=== PATIENT | male | born 1980 | race Caucasian/White ===

== ENCOUNTER → 2017-08-15 10:49 | Outpatient (CLI) | payer OTHER, SELFPAY ==
[2017-08-15 12:52] LABS: Alanine Aminotransferase 62 IU/L (21-72); Albumin 4.4 g/dL (3.5-5.0); Albumin Globulin Ratio 1.7 (1.0-2.8); Alkaline Phosphatase 70 U/L (38-126); Aspartate Aminotransferase 36 IU/L (17-59); BUN Creatinine Ratio 18.6 (6-22); Bilirubin Total 0.6 mg/dL (0.2-1.3); Calcium 9.8 mg/dL (8.4-10.2); Estimated Glomerular Filt Rate > 60.0 mL/min (>60); Globulin 2.6 g/dL (1.7-4.1); Glucose 88 mg/dL (70-100); HEMOLYSIS 18 (0-50); Potassium 4.3 mmol/L (3.4-5.1); Sodium 141 mmol/L (137-145)
[2017-08-15 13:05] LABS: Vitamin D 25 Hydroxy (D3) 40.6 ng/mL (30.0-100.0)
[2017-08-15 13:22] LABS: Thyroid Stimulating Hormone 0.65 uIU/mL (0.47-4.68)
[2017-08-17 07:39] LABS: Add Manual Diff / Slide Review NO; Basophils Percent Auto 0.6 % (0-2); Eosinophils Percent Auto 2.5 % (2-4); Hematocrit 35.8 % (41-53); Hemoglobin 12.3 g/dL (13.5-17.5); Lymphocytes Percent Auto 34.2 % (25-40); Mean Corpuscular HGB Conc 34.4 % (30-36); Mean Corpuscular Hemoglobin 31.2 PG (26-34); Mean Corpuscular Volume 90.6 fL (80-100); Monocytes Percent Auto 6.6 % (3-14); Neutrophils Absolute Auto 1900 /uL (3000-5900); Neutrophils Percent Auto 56.1 % (50-75); Platelet Count 137 X10^3/uL (150-400); Red Blood Cell Count 3.95 X10^6/uL (4.5-5.9); Red Cell Distribution Width 13.5 % (11.6-14.8); White Blood Cell Count 3.3 X10^3/uL (4.5-11.0)
[2017-08-19 18:56] LABS: Zinc 70 mcg/dL (60-130)
== END ==
PROVIDERS: PCP Family Medicine; Visit Provider Specialist
DX: E83.81 Hungry bone syndrome (principal); E55.9 Vitamin D deficiency, unspecified; F41.1 Generalized anxiety disorder; G47.9 Sleep disorder, unspecified
CPT/HCPCS: 36415; 80053; 82306; 82390; 82525; 84443; 84630; 85025

== ENCOUNTER → 2018-06-03 14:20 | Outpatient (CLI) | payer OTHER, SELFPAY ==
--- NOTE | 2018-06-03 | DI.US.S_ITS ---
PROCEDURE: US ABDOMEN COMPLETE INDICATIONS: ABDOMINAL PAIN TECHNIQUE: Real-time scanning was performed of the abdominal and retroperitoneal organs, with image documentation. COMPARISON: [facility], CT, ABDOMEN/PELVIS WITH CONTRAST, 12/19/2014, 8:49. FINDINGS: Liver: Liver is normal in size and demonstrates mild, diffusely increased echotexture. Gallbladder: Gallbladder appears normal. No gallstones. No gallbladder wall thickening, pericholecystic fluid or sonographic Grider's sign. Biliary ducts: Intrahepatic bile ducts are non-dilated. Extrahepatic bile duct caliber measures 3.1 mm. Normal is 6-7 mm or less in diameter, or 10 mm or less post-cholecystectomy. Pancreas: Visualized portions of the pancreas are sonographically normal. Spleen: Spleen is normal in size and homogeneous in echotexture. Kidneys: Kidneys are normal in size and echotexture. Right kidney measures 10.7 cm long; left kidney measures 10.7 cm long. No hydronephrosis or nephrolithiasis. No solid masses. Aorta: Visualized aorta is normal in caliber at less than 3 cm. Iliacs: Proximal common iliac arteries are normal in caliber at less than 2.5 cm. IVC: Intrahepatic inferior vena cava is patent. Miscellaneous: No free abdominal fluid. IMPRESSION: 1. Mild, diffusely increased hepatic echotexture. This finding is most likely secondary to hepatic fatty infiltration although other hepatocellular disease may have a similar appearance. Recommend clinical correlation. 2. Otherwise normal abdominal ultrasound exam. Dictated by: Sujatha Burciaga M.D. on 06/03/2018 at 16:46 Approved by: Sujatha Burciaga M.D. on 06/03/2018 at 16:48
== END ==
PROVIDERS: PCP Family Medicine; Visit Provider Family Medicine
DX: R10.9 Unspecified abdominal pain (principal)
CPT/HCPCS: 76700

== ENCOUNTER → 2018-09-09 08:30 | Outpatient (CLI) | payer OTHER, SELFPAY ==
[2018-09-09 10:07] LABS: Alanine Aminotransferase 29 IU/L (21-72); Albumin 4.4 g/dL (3.5-5.0); Albumin Globulin Ratio 1.6 (1.0-2.8); Alkaline Phosphatase 64 U/L (38-126); Aspartate Aminotransferase 31 IU/L (17-59); BUN Creatinine Ratio 13.8 (6-22); Bilirubin Total 0.5 mg/dL (0.2-1.3); Blood Urea Nitrogen 11 mg/dL (9-20); Calcium 9.6 mg/dL (8.4-10.2); Carbon Dioxide 31 mmol/L (22-32); Chloride 103 mmol/L (98-107); Estimated Glomerular Filt Rate > 60.0 mL/min (>60); Globulin 2.7 g/dL (1.7-4.1); Glucose 80 mg/dL (70-100); HEMOLYSIS < 15 (0-50); Potassium 4.2 mmol/L (3.4-5.1); Sodium 140 mmol/L (137-145); Total Protein 7.1 g/dL (6.3-8.2)
[2018-09-09 10:25] LABS: Vitamin D 25 Hydroxy (D3) 46.8 ng/mL (30.0-100.0)
[2018-09-09 10:39] LABS: Thyroid Stimulating Hormone 1.42 uIU/mL (0.47-4.68)
[2018-09-09 10:43] LABS: Ferritin 37.9 ng/mL (17.9-464)
== END ==
PROVIDERS: PCP Family Medicine; Visit Provider Specialist
DX: E55.9 Vitamin D deficiency, unspecified (principal); F41.1 Generalized anxiety disorder
CPT/HCPCS: 36415; 80053; 82306; 82728; 84443

== ENCOUNTER → 2018-10-23 08:16 | Outpatient (CLI) | payer OTHER, SELFPAY ==
[2018-10-23 09:23] LABS: Add Manual Diff / Slide Review NO; Basophils Absolute Auto 0 /uL (0-100); Basophils Percent Auto 0.8 % (0-2); Eosinophils Absolute Auto 100 /uL (0-450); Eosinophils Percent Auto 3.3 % (2-4); Hematocrit 43.3 % (41-53); Hemoglobin 14.6 g/dL (13.5-17.5); Lymphocytes Absolute Auto 1700 /uL (1100-4500); Lymphocytes Percent Auto 40.3 % (25-40); Mean Corpuscular HGB Conc 33.7 % (30-36); Mean Corpuscular Hemoglobin 30.6 PG (26-34); Mean Corpuscular Volume 90.7 fL (80-100); Monocytes Absolute Auto 300 /uL (0-900); Neutrophils Absolute Auto 2000 /uL (1500-7000); Neutrophils Percent Auto 47.6 % (50-75); Platelet Count 188 X10^3/uL (150-400); Red Blood Cell Count 4.77 X10^6/uL (4.5-5.9); Red Cell Distribution Width 12.9 % (11.6-14.8); White Blood Cell Count 4.3 X10^3/uL (4.5-11.0)
[2018-10-26 14:34] LABS: Ceruloplasmin 28 mg/dL (18-36)
[2018-10-27 16:53] LABS: Zinc 88 mcg/dL (60-130)
== END ==
PROVIDERS: Family Provider Family Medicine; PCP Family Medicine; Visit Provider Specialist
DX: Z92.89 Personal history of other medical treatment (principal)
CPT/HCPCS: 82390; 82525; 84630; 85025

== ENCOUNTER → 2019-07-30 08:59 | Outpatient (CLI) | payer OTHER, SELFPAY ==
[2019-07-30 09:39] LABS: Add Manual Diff / Slide Review NO; Basophils Absolute Auto 0 /uL (0-100); Basophils Percent Auto 0.5 % (0-2); Eosinophils Absolute Auto 100 /uL (0-450); Eosinophils Percent Auto 1.3 % (2-4); Hematocrit 44.1 % (41-53); Hemoglobin 15.1 g/dL (13.5-17.5); Lymphocytes Absolute Auto 1300 /uL (1100-4500); Lymphocytes Percent Auto 29.8 % (25-40); Mean Corpuscular HGB Conc 34.2 % (30-36); Mean Corpuscular Volume 90.8 fL (80-100); Monocytes Absolute Auto 300 /uL (0-900); Monocytes Percent Auto 6.6 % (3-14); Neutrophils Absolute Auto 2700 /uL (1500-7000); Neutrophils Percent Auto 61.8 % (50-75); Platelet Count 206 X10^3/uL (150-400); Red Blood Cell Count 4.86 X10^6/uL (4.5-5.9); Red Cell Distribution Width 12.9 % (11.6-14.8); White Blood Cell Count 4.4 X10^3/uL (4.5-11.0)
[2019-07-30 10:12] LABS: Alanine Aminotransferase 23 IU/L (<50); Albumin 4.6 g/dL (3.5-5.0); Albumin Globulin Ratio 1.6 (1.0-2.8); Alkaline Phosphatase 62 U/L (38-126); Aspartate Aminotransferase 29 IU/L (17-59); BUN Creatinine Ratio 15.6 (6-22); Bilirubin Total 0.4 mg/dL (0.2-1.3); Blood Urea Nitrogen 12 mg/dL (9-20); Calcium 9.7 mg/dL (8.4-10.2); Carbon Dioxide 29 mmol/L (22-32); Chloride 103 mmol/L (98-107); Estimated Glomerular Filt Rate > 60.0 mL/min (>60); Globulin 2.8 g/dL (1.7-4.1); Glucose 80 mg/dL (70-100); HEMOLYSIS < 15 (0-50); Potassium 3.7 mmol/L (3.4-5.1); Sodium 140 mmol/L (137-145); Total Protein 7.4 g/dL (6.3-8.2)
[2019-07-30 10:29] LABS: Vitamin D 25 Hydroxy (D3) 56.2 ng/mL (30.0-100.0)
[2019-07-30 10:42] LABS: Thyroid Stimulating Hormone 1.02 uIU/mL (0.47-4.68)
[2019-07-30 10:47] LABS: Ferritin 40 ng/mL (18-464)
[2019-07-31 11:42] LABS: Ceruloplasmin 20.8 mg/dL (16.0-31.0)
[2019-08-01 23:07] LABS: Zinc 91 ug/dL (56-134)
[2019-08-04 13:36] LABS: Zinc,RBC 1195 ug/dL (878-1660)
== END ==
PROVIDERS: Family Provider Family Medicine; PCP Family Medicine; Referring Provider Specialist; Visit Provider Specialist
DX: E83.89 Other disorders of mineral metabolism (principal); E55.9 Vitamin D deficiency, unspecified; F41.1 Generalized anxiety disorder; F51.11 Primary hypersomnia
CPT/HCPCS: 80053; 82306; 82390; 82525; 82728; 84443; 84630; 85025

== ENCOUNTER → 2020-11-23 09:13 | Outpatient (CLI) | payer OTHER, SELFPAY ==
[2020-11-23 10:10] LABS: Add Manual Diff / Slide Review NO; Basophils Absolute Auto 0 /uL (0-100); Basophils Percent Auto 0.6 % (0-2); Eosinophils Absolute Auto 100 /uL (0-450); Eosinophils Percent Auto 1.4 % (2-4); Hematocrit 42.9 % (41-53); Hemoglobin 14.5 g/dL (13.5-17.5); Lymphocytes Absolute Auto 1600 /uL (1100-4500); Lymphocytes Percent Auto 38.4 % (25-40); Mean Corpuscular HGB Conc 33.8 % (30-36); Mean Corpuscular Hemoglobin 30.2 PG (26-34); Mean Corpuscular Volume 89.3 fL (80-100); Monocytes Absolute Auto 400 /uL (0-900); Monocytes Percent Auto 9.4 % (3-14); Neutrophils Absolute Auto 2000 /uL (1500-7000); Neutrophils Percent Auto 50.2 % (50-75); Platelet Count 183 X10^3/uL (150-400); Red Cell Distribution Width 12.9 % (11.6-14.8); White Blood Cell Count 4.1 X10^3/uL (4.5-11.0)
[2020-11-23 10:38] LABS: Alanine Aminotransferase 24 IU/L (<50); Albumin 4.6 g/dL (3.5-5.0); Albumin Globulin Ratio 1.8 (1.0-2.8); Alkaline Phosphatase 65 U/L (38-126); Aspartate Aminotransferase 28 IU/L (17-59); BUN Creatinine Ratio 21.1 (6-22); Bilirubin Total 0.4 mg/dL (0.2-1.3); Blood Urea Nitrogen 16 mg/dL (9-20); Calcium 9.5 mg/dL (8.4-10.2); Carbon Dioxide 29 mmol/L (22-32); Chloride 102 mmol/L (98-107); Estimated Glomerular Filt Rate > 60.0 mL/min (>60); Globulin 2.5 g/dL (1.7-4.1); Glucose 102 mg/dL (70-100); HEMOLYSIS < 15 (0-50); Potassium 4.3 mmol/L (3.4-5.1); Sodium 138 mmol/L (137-145); Total Protein 7.1 g/dL (6.3-8.2)
[2020-11-23 10:50] LABS: Vitamin D 25 Hydroxy (D3) 54.5 ng/mL (30.0-100.0)
[2020-11-23 11:07] LABS: Thyroid Stimulating Hormone 0.741 uIU/mL (0.47-4.68)
[2020-11-23 11:16] LABS: Ferritin 49 ng/mL (18-464)
[2020-11-24 06:37] LABS: Ceruloplasmin 21.3 mg/dL (16.0-31.0)
[2020-11-24 22:37] LABS: Zinc 96 ug/dL (44-115)
== END ==
PROVIDERS: Family Provider Family Medicine; PCP Family Medicine; Referring Provider Specialist; Visit Provider Specialist
DX: E83.89 Other disorders of mineral metabolism (principal); E55.9 Vitamin D deficiency, unspecified; F41.1 Generalized anxiety disorder; F51.19 Other hypersomnia not due to a substance or known physiological condition
CPT/HCPCS: 36415; 80053; 82306; 82390; 82525; 82728; 84443; 84630; 85025

== ENCOUNTER → 2021-11-26 09:28 | Outpatient (CLI) | payer OTHER, SELFPAY ==
[2021-11-26 10:55] LABS: Add Manual Diff / Slide Review NO; Basophils Absolute Auto 0 /uL (0-100); Basophils Percent Auto 0.5 % (0-2); Eosinophils Absolute Auto 100 /uL (0-450); Eosinophils Percent Auto 1.3 % (2-4); Hematocrit 45.2 % (41-53); Hemoglobin 15.2 g/dL (13.5-17.5); Lymphocytes Absolute Auto 1500 /uL (1100-4500); Lymphocytes Percent Auto 32.7 % (25-40); Mean Corpuscular HGB Conc 33.7 % (30-36); Mean Corpuscular Hemoglobin 30.1 PG (26-34); Mean Corpuscular Volume 89.4 fL (80-100); Monocytes Absolute Auto 300 /uL (0-900); Monocytes Percent Auto 5.8 % (3-14); Neutrophils Absolute Auto 2700 /uL (1500-7000); Neutrophils Percent Auto 59.7 % (50-75); Platelet Count 186 X10^3/uL (150-400); Red Blood Cell Count 5.05 X10^6/uL (4.5-5.9); Red Cell Distribution Width 12.8 % (11.6-14.8); White Blood Cell Count 4.5 X10^3/uL (4.5-11.0)
[2021-11-26 11:26] LABS: Alanine Aminotransferase 27 IU/L (<50); Albumin 4.6 g/dL (3.5-5.0); Albumin Globulin Ratio 1.7 (1.0-2.8); Alkaline Phosphatase 65 U/L (38-126); Aspartate Aminotransferase 26 IU/L (17-59); BUN Creatinine Ratio 12.3 (6-22); Bilirubin Total 0.6 mg/dL (0.2-1.3); Blood Urea Nitrogen 10 mg/dL (9-20); Calcium 9.2 mg/dL (8.4-10.2); Carbon Dioxide 30 mmol/L (22-32); Chloride 104 mmol/L (98-107); Estimated Glomerular Filt Rate > 60 mL/min (>60); Globulin 2.7 g/dL (1.7-4.1); Glucose 96 mg/dL (70-100); HEMOLYSIS < 15 (0-50); Potassium 4.2 mmol/L (3.4-5.1); Sodium 139 mmol/L (137-145); Total Protein 7.3 g/dL (6.3-8.2)
[2021-11-26 11:43] LABS: Vitamin D 25 Hydroxy (D3) 49.6 ng/mL (30.0-100.0)
[2021-11-27 19:07] LABS: Zinc 109 ug/dL (44-115)
== END ==
PROVIDERS: Family Provider Family Medicine; PCP Family Medicine; Referring Provider Specialist; Visit Provider Specialist
DX: E83.2 Disorders of zinc metabolism (principal); F41.1 Generalized anxiety disorder
CPT/HCPCS: 36415; 80053; 82306; 82390; 82525; 83088; 84443; 84630; 85025

== ENCOUNTER → 2022-12-19 14:06 | Outpatient (CLI) | payer SELFPAY ==
[2022-12-19 15:00] LABS: Add Manual Diff / Slide Review NO; Basophils Absolute Auto 0 /uL (0-100); Basophils Percent Auto 0.5 % (0-2); Eosinophils Absolute Auto 100 /uL (0-450); Eosinophils Percent Auto 0.8 % (2-4); Hematocrit 41.7 % (41-53); Hemoglobin 14.1 g/dL (13.5-17.5); Lymphocytes Absolute Auto 1400 /uL (1100-4500); Lymphocytes Percent Auto 22.5 % (25-40); Mean Corpuscular HGB Conc 33.7 % (30-36); Mean Corpuscular Hemoglobin 29.9 PG (26-34); Mean Corpuscular Volume 88.9 fL (80-100); Monocytes Absolute Auto 800 /uL (0-900); Monocytes Percent Auto 12.5 % (3-14); Neutrophils Absolute Auto 3900 /uL (1500-7000); Neutrophils Percent Auto 63.7 % (50-75); Platelet Count 172 X10^3/uL (150-400); Red Blood Cell Count 4.69 X10^6/uL (4.5-5.9); Red Cell Distribution Width 12.8 % (11.6-14.8); White Blood Cell Count 6.2 X10^3/uL (4.5-11.0)
[2022-12-20 05:28] LABS: Ceruloplasmin 21.8 mg/dL (16.0-31.0)
[2022-12-21 22:07] LABS: Zinc 106 ug/dL (44-115)
[2022-12-25 14:03] LABS: Vitamin D 25 Hydroxy (D3) 32.9 ng/mL (30.0-100.0)
[2022-12-25 14:17] LABS: Thyroid Stimulating Hormone 1.06 uIU/mL (0.47-4.68)
[2022-12-25 14:33] LABS: Ferritin 72 ng/mL (18-464)
== END ==
PROVIDERS: Family Provider Family Medicine; PCP Family Medicine; Referring Provider Specialist; Visit Provider Specialist
DX: E60 Dietary zinc deficiency (principal); E55.9 Vitamin D deficiency, unspecified; F41.1 Generalized anxiety disorder; E83.2 Disorders of zinc metabolism
CPT/HCPCS: 36415; 80053; 82306; 82390; 82525; 82728; 84443; 84630; 85025

== ENCOUNTER → 2023-01-10 12:09 | Outpatient (CLI) | payer OTHER, SELFPAY ==
[2023-01-10 13:12] LABS: Alanine Aminotransferase 39 IU/L (<50); Albumin 4.5 g/dL (3.5-5.0); Albumin Globulin Ratio 1.8 (1.0-2.8); Alkaline Phosphatase 64 U/L (38-126); Aspartate Aminotransferase 36 IU/L (17-59); BUN Creatinine Ratio 17.6 (6-22); Bilirubin Total 0.4 mg/dL (0.2-1.3); Blood Urea Nitrogen 13 mg/dL (9-20); Calcium 9.7 mg/dL (8.4-10.2); Carbon Dioxide 27 mmol/L (22-32); Chloride 102 mmol/L (98-107); Estimated Glomerular Filt Rate > 60 mL/min (>60); Globulin 2.5 g/dL (1.7-4.1); Glucose 99 mg/dL (70-100); HEMOLYSIS 26 (0-50); Potassium 4.3 mmol/L (3.4-5.1); Sodium 137 mmol/L (137-145)
== END ==
PROVIDERS: Family Provider Family Medicine; PCP Family Medicine; Referring Provider Specialist; Visit Provider Specialist
DX: E60 Dietary zinc deficiency (principal); E55.9 Vitamin D deficiency, unspecified; F41.1 Generalized anxiety disorder
CPT/HCPCS: 80053

== ENCOUNTER → 2023-06-01 10:58 | Outpatient (CLI) | payer OTHER, SELFPAY ==
--- NOTE | 2023-06-01 | DI.RAD.S_ITS ---
PROCEDURE: FL BARIUM SWALLOW INDICATIONS: Dysphagia, unspecified COMPARISON: None. FINDINGS: Function: There is weakened esophageal peristalsis, resulting in stasis of contrast but no tertiary contractions. Small volume elicited gastroesophageal reflux. Tiny hiatal hernia. Morphology: Air-contrast images demonstrate normal mucosal morphology. Single contrast views show no esophageal strictures, extrinsic mass effects, or diverticula. Limited images of the stomach demonstrate normal appearance. IMPRESSION: Tiny hiatal hernia with small volume gastroesophageal reflux. Moderate esophageal dysmotility for age. Dictated by: Tahir Jefferson M.D. on 06/01/2023 at 14:05 Approved by: Tahir Jefferson M.D. on 06/01/2023 at 14:06
== END ==
LOC: RAD 11:00
PROVIDERS: Family Provider Family Medicine; PCP Family Medicine; Referring Provider Family Medicine; Visit Provider Family Medicine
DX: K22.4 Dyskinesia of esophagus (principal); K21.9 Gastro-esophageal reflux disease without esophagitis; R13.10 Dysphagia, unspecified
CPT/HCPCS: 74220

== ENCOUNTER 2024-07-28 09:34 | Day surgery (SDC) | payer BC, SELFPAY ==
--- NOTE | 2024-07-28 | PATH_ITS ---
[facility] Accession Number: [id number] No. of containers..03 Tissue . 01 Material submitted: . PART A: duodenum - DUODENUM PART B: duodenum bulb - DUODENAL BULB PART C: stomach - ANTRUM . 01 Diagnosis: A. DUODENUM: Duodenal mucosa with no diagnostic abnormality. Negative for active inflammation, features of sprue, dysplasia, or malignancy. . B. DUODENAL BULB: Duodenal mucosa with no diagnostic abnormality. Negative for active inflammation, features of sprue, dysplasia, or malignancy. . C. ANTRUM: Gastric mucosa with mild chronic inflammation. No Helicobacter pylori organisms identified on immunohistochemical evaluation. No intestinal metaplasia, dysplasia, or malignancy. V 08/02/2024 1240 Local . 01 Electronically signed: . Sarah Benton MD, Pathologist NPI- [id number] . 01 Gross description: . A. Received in formalin with two patient identifiers and 1. Duodenum biopsy, are two ayala soft tissue fragments both measuring 0.3 cm in greatest dimension, submitted in A1. B. Received in formalin with two patient identifiers and 2. Duodenal bulb biopsy, are three ayala soft tissue fragments, 0.2 to 0.5 cm in greatest dimension, submitted in B1. C. Received in formalin with two patient identifiers and 3. Antrum biopsy, are two ayala soft tissue fragments, 0.3 to 0.4 cm in greatest dimension, submitted in C1. ([id number]) /MRV 07/30/2024 1744 Local . 01 Microscopic: . C. An immunohistochemical stain was performed to evaluate for Helicobacter organisms and is negative. The control stain showed appropriate reactivity. . * This test was developed and the performance characteristics were validated by [employer]. It has not been cleared or approved by the [place]. Food and Drug Administration. . 01 Pathologist provided ICD-10: K29.70 . 01 CPT . 221199, 380900, 125055, [id number] Specimen Comment: A courtesy copy of this report has been sent to [phone] Performed at: [address] [id number] MD Hu Palumbo MD Phone: [phone]
[2024-07-28 10:16] VITALS: BP 147/82; PULSE 84; RESP 17; TEMP 36.1; O2SAT 99
[2024-07-28] MEDS: LACTATED RINGERS 1,000 ML 42 ML IV (10:16)
--- NOTE | 2024-07-28 10:21 | PM.PREOP ---
Pre-operative Note COVID-19 COVID-19 status: Not tested Interval Note History & Physical reviewed/Exam performed by Physician: Yes Changes to H&P: No ASA Class (for procedural sedation): II
--- NOTE | 2024-07-28 11:11 | PM.OP.EC ---
Operative Date/Time/Diagnoses Date of procedure: 07/28/24 Time of procedure: 11:11 Pre-op diagnosis: Dysphagia and colon cancer screening Post-op diagnosis: same Procedure & Clinicians Study performed: EGD and colonoscopy Same procedure as scheduled: Yes Surgeon: Ryland Toribio Procedure Notes Procedure in detail: Surgeon: Ryland Toribio MD Anesthesia: Kamala Pedroza CRNA Procedure in detail: A timeout was performed. A bite blocked was placed and monitors were attached to the patient. The patient was positioned in the left lateral decubitus position. Sedation was administered. Once the patient was sedated the endoscope was inserted through the bite block and passed through the esophagus and stomach. The pylorus was rather narrowed and it was difficult to pass the scope through the pylorus. Eventually we are able to intubate the duodenum. Biopsies were taken from the descending duodenum with cold forceps. The mucosa in the second portion of the duodenum appeared normal. The duodenal bulb appeared inflamed without any obvious ulcerations. Biopsies were taken from the duodenal bulb mucosa with forceps. We then withdrew the scope into the stomach. There was mild antritis and random biopsies were taken from the antrum with cold forceps. The endoscope was retroflexed and no hiatal hernia was noted. The endoscope was straightned and withdrawn into the esophagus. There were no obvious esophageal abnormalities. EGD findings: Duodenitis of the bulb and mild antritis, narrow pyloric channel Next we repositioned the patient for a colonoscopy. A digital rectal exam was performed and was normal. The colonoscope was inserted and advanced to the cecum. The appendiceal orifice was identified and photographed. The scope was slowly withdrawn over greater than 6 minutes. No abnormalities were found. The scope was retroflexed in the rectum and no abnormalities were seen. Colonoscopy findings: Normal colon Total procedural EBL: 5 mL Scope withdrawal time: 7 minutes Sedation minutes: 17 minutes Post-procedure Recommendations: Colonscopy in 10 years Disposition: PACU
[2024-07-28 11:14] VITALS: BP 91/54; PULSE 63; RESP 16; TEMP 36.2; O2SAT 97
[2024-07-28 11:33] VITALS: BP 104/69; PULSE 65; RESP 16; TEMP 36.3; O2SAT 98
== END 2024-07-28 11:37 | disposition home or self-care (01) ==
PROVIDERS: Family Provider Family Medicine; PCP Family Medicine; Referring Provider Surgery; Visit Provider Surgery
PROC: 0DJ08ZZ Inspection of Upper Intestinal Tract, Via Natural or Artificial Opening Endoscopic (ICD-10-PCS; CPT 43239; principal; 2024-07-28 10:45)
PROC: 0DJD8ZZ Inspection of Lower Intestinal Tract, Via Natural or Artificial Opening Endoscopic (ICD-10-PCS; CPT 45378; 2024-07-28 10:45)
DX: Z12.11 Encounter for screening for malignant neoplasm of colon (principal); R13.10 Dysphagia, unspecified; K29.80 Duodenitis without bleeding; K29.50 Unspecified chronic gastritis without bleeding
CPT/HCPCS: 43239; 45378; J2704